=== PATIENT | male | born 1980 | race Two or more races ===

== ENCOUNTER → 2020-07-19 | Outpatient (CLI) | payer BC ==
--- NOTE | 2020-07-19 12:57 | US ---
EXAMINATION TYPE: US abdomen complete DATE OF EXAM: 07/19/2020 COMPARISON: NONE CLINICAL HISTORY: R74.01 elevations of levels of liver transaminase. EXAM MEASUREMENTS: Liver Length: 15.1 cm Gallbladder Wall: 0.1 cm CBD: 0.3 cm Spleen: 9.2 cm Right Kidney: 11.6 x 4.7 x 5.3 cm Left Kidney: 10.7 x 6.7 x 5.3 cm Pancreas: Obscured by bowel gas. Liver: Coarse, heterogenous hyperechoic echotexture. Hypoechoic area adjacent to gallbladder fossa m easuring 1.3 cm. Gallbladder: 2 nonshadowing echogenic foci visualized, measuring up to 7 mm. Pump Press Operator reports negative sonographic Andrade sign. CBD: Normal. Spleen: Normal. Right Kidney: No hydronephrosis or masses seen Left Kidney: No hydronephrosis or masses seen Upper IVC: Normal. Abd Aorta: Obscured by bowel gas, visualized portions nonaneurysmal IMPRESSION: 1. Markedly fatty liver. 2. Small hypoechoic area within the liver near the gallbladder fossa may represent focal fatty sparin g. 3. Nonshadowing echogenic foci of the gallbladder wall may represent gallbladder polyps versus adhere nt sludge ball, measuring up to 7 mm.
== END | disposition home or self-care (01) ==
LOC: RADUSWWP 08:01
PROVIDERS: ATTEND Family Medicine
DX: K76.0 Fatty (change of) liver, not elsewhere classified (principal); R93.5 Abnormal findings on diagnostic imaging of other abdominal regions, including retroperitoneum
CPT/HCPCS: 76700

== ENCOUNTER 2020-08-28 06:45 | Day surgery (SDC) | payer BC ==
[2020-08-23 16:07] VITALS: BMI 30.9
[2020-08-28 07:08] VITALS: TEMP 96.9
[2020-08-28 07:20] LABS: Glucose,Whole Blood 133 mg/dL (75-99)
[2020-08-28] MEDS ORDERED: LACTATED RINGERS 1,000 ML IV ONE (07:21)
[2020-08-28] MEDS ORDERED: LIDOCAINE 1% (10MG/ML) FOR IV START INTRADERMA ONE (07:21)
[2020-08-28] MEDS ORDERED: PROPOFOL 10 MG/ML 20 ML VIAL IV ONE (07:39)
[2020-08-28] MEDS ORDERED: LIDOCAINE 1% INJ 10MG/ML (20 ML MDV) ONE (07:39)
--- NOTE | 2020-08-28 08:06 | P.PCN ---
Date of Procedure: 08/28/20 Description of Procedure: BRIEF HISTORY: Patient is a 40-year-old male presented for outpatient colonoscopy for evaluation of symptoms of constipation. The patient reports 2 years of difficulty with bowel movements and constipation. He does use [id number] laxative therapy. PROCEDURE PERFORMED: Colonoscopy with polypectomy and biopsy. PREOPERATIVE DIAGNOSIS: Constipation and change in bowel habits, no prior colonoscopy. ESTIMATED BLOOD LOSS: Minimal. IV sedation per Anesthesia. PROCEDURE: After informed consent was obtained, the patient, was brought into the endoscopy unit. IV sedation was administered by Anesthesia under continuous monitoring. Digital rectal examination was normal, external hemorrhoids. Initially the Olympus CF-190 flexible video colonoscope was then inserted in the rectum, gradually advanced into the cecum without any difficulty. Careful examination was performed as the scope was gradually being withdrawn. Ileocecal valve and the appendiceal orifice were visualized and appeared normal. Prep was excellent. Mucosa of the cecum, ascending colon, transverse colon, descending colon, sigmoid colon, and rectum appeared normal. 2 diminutive polyps measuring 1-2 mm in size removed from the descending colon and rectum with cold forcep polypectomy. Random biopsies taken of the normal-appearing terminal ileum and right and left colon due to altered bowel function. Retroflexion was performed in the rectum and no lesions were seen, mild internal hemorrhoids. The patient tolerated the procedure well. IMPRESSION: 2 diminutive polyps removed with cold forcep polypectomy from the descending colon and rectum. Internal and external hemorrhoids. Otherwise normal-appearing colon from rectum to cecum and terminal ileum, with random biopsies taken of the terminal ileum, right colon and left colon due to altered bowel function. RECOMMENDATIONS: Findings of this examination were discussed with the patient and his family. Okay to resume diet. Okay to resume medications. Await pathology from biopsies and polypectomy. Recommend repeat colonoscopy in 7 years for colon polyps pending pathology from polypectomy.
[2020-08-28 08:25] VITALS: BP 127/88; PULSE 75; RESP 18
== END 2020-08-28 08:49 | disposition home or self-care (01) ==
LOC: ORWHC2ENDO 06:45
PROVIDERS: ATTEND Internal Medicine
DX: K63.5 Polyp of colon (principal); K62.1 Rectal polyp; K64.8 Other hemorrhoids; K64.4 Residual hemorrhoidal skin tags; E11.9 Type 2 diabetes mellitus without complications; K21.9 Gastro-esophageal reflux disease without esophagitis; Z79.899 Other long term (current) drug therapy; Z87.891 Personal history of nicotine dependence
CPT/HCPCS: 88305; 45380; J2001; J2704

== ENCOUNTER 2021-04-13 19:36 | Emergency (ER) | payer BC, OTHER ==
[2021-04-13 19:45] VITALS: RESP 18
[2021-04-13] MEDS ORDERED: MORPHINE SULFATE 2 MG/ML SYRINGE IVP STA (19:55)
[2021-04-13] MEDS ORDERED: SODIUM CHLORIDE 0.9% 1,000 ML IV STA (19:55)
--- NOTE | 2021-04-13 20:03 | ED ---
Abdominal Pain HPI - General Chief Complaint: Abdominal Pain Stated Complaint: Abd Pain Source: patient, RN notes reviewed, old records reviewed Mode of arrival: ambulatory - History of Present Illness Initial Comments: 41-year-old well-appearing male presents to the emergency room with complaints of 2 weeks of abdominal pain. Patient states that 2 weeks ago he was moving a refrigerator and he felt something pull in the right lower abdomen. It is progressively getting worse throughout the past 2 weeks now radiating to the left upper abdomen. He states the pain is worse when he is in bed. It does get better when he takes Tylenol but then comes back. Denies any nausea vomiting or diarrhea. No fevers. No chest pain or shortness of breath. He states he's had no abdominal surgeries in the past. He is a diabetic he states that he takes invokana and just started taking trulance. He does have constipation problems chronically. Patient is a nonsmoker. MD Complaint: abdominal pain -: week(s) (2) Location: RLQ Radiation: LUQ Severity scale (1-10): 8 Quality: sharp Consistency: constant Improves With: medication (Tylenol ) Worsens With: movement Context: other ([place] it 2 weeks ago when moving a refrigerator) Associated Symptoms: denies other symptoms Treatments Prior to Arrival: other (Tylenol) - Related Data Home Medications Medication Instructions Recorded Confirmed Canagliflozin [Invokana] 100 mg PO DAILY 08/23/20 08/28/20 Cetirizine HCl [Zyrtec] 10 mg PO DAILY 08/23/20 08/28/20 Plecanatide [Trulance] 3 mg PO DAILY 04/13/21 04/13/21 Previous Rx's Medication Instructions Recorded Cyclobenzaprine [Flexeril] 10 mg PO HS PRN 7 Days #7 tab 04/13/21 Allergies Allergy/AdvReac Type Severity Reaction Status Date / Time No Known Allergies Allergy Verified 08/28/20 07:00 Review of Systems ROS Statement: Those systems with pertinent positive or pertinent negative responses have been documented in the HPI. ROS Other: All systems not noted in ROS Statement are negative. Past Medical History Past Medical History: Diabetes Mellitus, GERD/Reflux Additional Past Medical History / Comment(s): constipation History of Any Multi-Drug Resistant Organisms: None Reported Past Surgical History: No Surgical Hx Reported Past Anesthesia/Blood Transfusion Reactions: No Reported Reaction Past Psychological History: No Psychological Hx Reported Smoking Status: Former smoker Past Alcohol Use History: None Reported Past Drug Use History: None Reported - Past Family History Mother Family Medical History: No Reported History General Exam General appearance: alert, in no apparent distress Head exam: Present: atraumatic, normocephalic, normal inspection Eye exam: Present: normal appearance, PERRL, EOMI. Absent: scleral icterus, conjunctival injection, periorbital swelling Pupils: Present: normal accommodation ENT exam: Present: normal exam, normal oropharynx, mucous membranes moist Neck exam: Present: normal inspection. Absent: tenderness, meningismus, lymphadenopathy Respiratory exam: Present: normal lung sounds bilaterally. Absent: respiratory distress, wheezes, rales, rhonchi, stridor, chest wall tenderness, accessory muscle use, decreased breath sounds, prolonged expiratory Cardiovascular Exam: Present: regular rate, normal rhythm, normal heart sounds. Absent: systolic murmur, diastolic murmur, rubs, gallop, clicks GI/Abdominal exam: Present: soft, distended, tenderness (Diffuse). Absent: guarding, rigid, mass, pulsatile mass, hernia Extremities exam: Present: normal inspection, full ROM, normal capillary refill. Absent: tenderness, pedal edema, joint swelling, calf tenderness Back exam: Present: normal inspection, full ROM. Absent: tenderness, CVA tenderness (R), CVA tenderness (L), muscle spasm, paraspinal tenderness, vertebral tenderness Neurological exam: Present: alert, oriented X3, CN II-XII intact Psychiatric exam: Present: normal affect, normal mood Skin exam: Present: warm, dry, intact, normal color. Absent: rash, cyanosis, diaphoretic, erythema, petechiae, pallor, mottled Course Vital Signs 04/13/21 04/13/21 19:43 22:12 Temperature 98.0 F 98.1 F Pulse Rate 88 60 Respiratory 18 18 Rate Blood Pressure 154/89 119/83 O2 Sat by Pulse 97 95 Oximetry Medical Decision Making - Medical Decision Making CT of the abdomen and pelvis with contrast shows normal liver, spleen, stomach, pancreas, and gallbladder. There is no hydrohephrosis, no retroperitoneal adenopathy. No inguinal hernia or free fluid in pelvis. The appendix is normal. There is no bowel obstruction. WBC in 7.9, glucose 112 with 4+ glucose in urine. Pt was given 1 L normal saline bolus. Patient now states this could be a muscle spasm. His is at bedside states she is a physician tax accounting assistant requesting Flexeril for muscle spasms which will be prescribed. He will follow up with his primary care doctor next week, return if worsening pain or fevers. Case discussed with Dr. Saldana. - Lab Data Result diagrams: 04/13/21 20:24 04/13/21 20:24 Lab Results 04/13/21 04/13/21 04/13/21 Range/Units 20:24 20:24 20:24 WBC 7.9 (3.8-10.6) k/uL RBC 5.12 (4.30-5.90) m/uL Hgb 15.1 (13.0-17.5) gm/dL Hct 46.3 (39.0-53.0) % MCV 90.4 (80.0-100.0) fL MCH 29.5 (25.0-35.0) pg MCHC 32.7 (31.0-37.0) g/dL RDW 13.4 (11.5-15.5) % Plt Count 237 (150-450) k/uL MPV 8.8 Neutrophils % 52 % Lymphocytes % 34 % Monocytes % 7 % Eosinophils % 3 % Basophils % 1 % Neutrophils # 4.1 (1.3-7.7) k/uL Lymphocytes # 2.7 (1.0-4.8) k/uL Monocytes # 0.6 (0-1.0) k/uL Eosinophils # 0.2 (0-0.7) k/uL Basophils # 0.0 (0-0.2) k/uL PT 9.9 (9.0-12.0) sec INR 0.9 (<1.2) APTT 24.2 (22.0-30.0) sec Sodium (137-145) mmol/L Potassium (3.5-5.1) mmol/L Chloride (98-107) mmol/L Carbon Dioxide (22-30) mmol/L Anion Gap mmol/L BUN (9-20) mg/dL Creatinine (0.66-1.25) mg/dL Est GFR (CKD-EPI)AfAm (>60 ml/min/1.73 sqM) Est GFR (CKD-EPI)NonAf (>60 ml/min/1.73 sqM) Glucose (74-99) mg/dL Plasma Lactic Acid Alan (0.7-2.0) mmol/L Calcium (8.4-10.2) mg/dL Total Bilirubin (0.2-1.3) mg/dL AST (17-59) U/L ALT (4-49) U/L Alkaline Phosphatase (38-126) U/L Total Protein (6.3-8.2) g/dL Albumin (3.5-5.0) g/dL Amylase (30-110) U/L Lipase (23-300) U/L Urine Color Light Yellow Urine Appearance Clear (Clear) Urine pH 6.0 (5.0-8.0) Ur Specific [place] 1.025 (1.001-1.035) Urine Protein Negative (Negative) Urine Glucose (UA) 4+ H (Negative) Urine Ketones Negative (Negative) Urine Blood Negative (Negative) Urine Nitrite Negative (Negative) Urine Bilirubin Negative (Negative) Urine Urobilinogen <2.0 (<2.0) mg/dL Ur Leukocyte Esterase Negative (Negative) 04/13/21 04/13/21 Range/Units 20:24 20:24 WBC (3.8-10.6) k/uL RBC (4.30-5.90) m/uL Hgb (13.0-17.5) gm/dL Hct (39.0-53.0) % MCV (80.0-100.0) fL MCH (25.0-35.0) pg MCHC (31.0-37.0) g/dL RDW (11.5-15.5) % Plt Count (150-450) k/uL MPV Neutrophils % % Lymphocytes % % Monocytes % % Eosinophils % % Basophils % % Neutrophils # (1.3-7.7) k/uL Lymphocytes # (1.0-4.8) k/uL Monocytes # (0-1.0) k/uL Eosinophils # (0-0.7) k/uL Basophils # (0-0.2) k/uL PT (9.0-12.0) sec INR (<1.2) APTT (22.0-30.0) sec Sodium 139 (137-145) mmol/L Potassium 3.9 (3.5-5.1) mmol/L Chloride 105 (98-107) mmol/L Carbon Dioxide 25 (22-30) mmol/L Anion Gap 9 mmol/L BUN 19 (9-20) mg/dL Creatinine 1.10 (0.66-1.25) mg/dL Est GFR (CKD-EPI)AfAm >90 (>60 ml/min/1.73 sqM) Est GFR (CKD-EPI)NonAf 84 (>60 ml/min/1.73 sqM) Glucose 112 H (74-99) mg/dL Plasma Lactic Acid Alan 1.1 (0.7-2.0) mmol/L Calcium 9.4 (8.4-10.2) mg/dL Total Bilirubin 0.3 (0.2-1.3) mg/dL AST 65 H (17-59) U/L ALT 122 H (4-49) U/L Alkaline Phosphatase 116 (38-126) U/L Total Protein 7.5 (6.3-8.2) g/dL Albumin 4.4 (3.5-5.0) g/dL Amylase 63 (30-110) U/L Lipase 114 (23-300) U/L Urine Color Urine Appearance (Clear) Urine pH (5.0-8.0) Ur Specific [place] (1.001-1.035) Urine Protein (Negative) Urine Glucose (UA) (Negative) Urine Ketones (Negative) Urine Blood (Negative) Urine Nitrite (Negative) Urine Bilirubin (Negative) Urine Urobilinogen (<2.0) mg/dL Ur Leukocyte Esterase (Negative) Disposition Clinical Impression: Abdominal pain Disposition: HOME SELF-CARE Condition: Good Instructions (If sedation given, give patient instructions): Abdominal Pain (ED) Additional Instructions: Take flexeril at bedtime and do not drive or drink alcohol while taking medication. Return to the emergency room with worsening pain or fevers. Follow-up with the primary care doctor in 1 week. Prescriptions: Cyclobenzaprine [Flexeril] 10 mg PO HS PRN 7 Days #7 tab PRN Reason: Muscle Spasm Is patient prescribed a controlled substance at d/c from ED?: No Referrals: Omer Forman MD [Primary Care Provider] - 1-2 days Time of Disposition: 22:01
[2021-04-13 20:32] LABS: Basophils % (A) 1 %; Eosinophils # (A) 0.2 k/uL (0-0.7); Eosinophils % (A) 3 %; HCT 46.3 % (39.0-53.0); HGB 15.1 gm/dL (13.0-17.5); Lymphocytes # (A) 2.7 k/uL (1.0-4.8); Lymphocytes % (A) 34 %; MCH 29.5 pg (25.0-35.0); MCHC 32.7 g/dL (31.0-37.0); MCV 90.4 fL (80.0-100.0); Mean Platelet Volume 8.8; Monocytes # (A) 0.6 k/uL (0-1.0); Monocytes % (A) 7 %; Neutrophils # (A) 4.1 k/uL (1.3-7.7); Neutrophils % (A) 52 %; Platelet Count 237 k/uL (150-450); RBC 5.12 m/uL (4.30-5.90); RDW 13.4 % (11.5-15.5); WBC 7.9 k/uL (3.8-10.6)
[2021-04-13 20:42] LABS: ALT 122 U/L (4-49); AST 65 U/L (17-59); African American GFR (CKD) >90 (>60 ml/min/1.73 sqM); Albumin 4.4 g/dL (3.5-5.0); Alkaline Phosphatase 116 U/L (38-126); Amylase 63 U/L (30-110); Anion Gap 9 mmol/L; Blood Urea Nitrogen 19 mg/dL (9-20); Calcium 9.4 mg/dL (8.4-10.2); Carbon Dioxide 25 mmol/L (22-30); Chloride 105 mmol/L (98-107); Glucose 112 mg/dL (74-99); Lipase 114 U/L (23-300); Non-African American GFR(CKD) 84 (>60 ml/min/1.73 sqM); Potassium 3.9 mmol/L (3.5-5.1); Sodium 139 mmol/L (137-145); Total Bilirubin 0.3 mg/dL (0.2-1.3); Total Protein 7.5 g/dL (6.3-8.2)
[2021-04-13 20:44] LABS: Appearance,Urine Clear (Clear); Bilirubin,Urine Negative (Negative); Blood,Urine Negative (Negative); Color,Urine Light Yellow; Glucose,Urine (UA) 4+ (Negative); INR 0.9 (<1.2); Ketones,Urine Negative (Negative); Leukocyte Esterase,Urine Negative (Negative); Nitrite,Urine Negative (Negative); Partial Thromboplastin Time 24.2 sec (22.0-30.0); Protein,Urine Negative (Negative); Prothrombin Time 9.9 sec (9.0-12.0); Specific Gravity,Urine 1.025 (1.001-1.035); Urobilinogen,Urine <2.0 mg/dL (<2.0)
--- NOTE | 2021-04-13 21:39 | CT ---
EXAMINATION TYPE: CT abdomen pelvis w con DATE OF EXAM: 04/13/2021 COMPARISON: None HISTORY: Generalized pain with constipation. CT DLP: 1132.1 mGycm Automated exposure control for dose reduction was used. CONTRAST: Performed with IV Contrast, patient injected with 100 mL of Isovue 300. Lung bases are clear. There is no pleural effusion. Heart size is normal. There is no pericardial eff usion. The liver spleen stomach pancreas gallbladder appear normal. The bile ducts are not dilated. There is no adrenal mass. The kidneys show satisfactory contrast opacification. There is no hydroneph rosis. Ureters are not dilated. Delayed images show normal renal excretion. There is no retroperitone al adenopathy. The bladder distends smoothly. There is no inguinal hernia. There is no free fluid in the pelvis. The re is no evidence of a pelvic mass. The appendix is medial and appears normal. There is no mesenteric edema. There is no ascites or free air. There is no bowel obstruction. The lumbar vertebra have normal alignment. There is narrowing at L5-S1 disc with vacuum disc and spur formation. There is no compression fracture. The bony pelvis is intact. Hip joints are intact. IMPRESSION: Negative CT scan abdomen and pelvis. Normal appendix.
[2021-04-13 22:16] VITALS: BP 119/83; PULSE 60; TEMP 98.1
== END 2021-04-13 22:15 | disposition home or self-care (01) ==
LOC: EC 19:36
DX: R10.31 Right lower quadrant pain (principal); R10.12 Left upper quadrant pain; E11.9 Type 2 diabetes mellitus without complications; Z87.891 Personal history of nicotine dependence; Z79.84 Long term (current) use of oral hypoglycemic drugs
CPT/HCPCS: 36415; 80053; 82150; 83605; 83690; 85025; 85610; 85730; 81003; 74177; 99284; Q9967

== ENCOUNTER 2023-12-01 13:35 | Emergency (ER) | payer OTHER ==
[2023-12-01 14:09] VITALS: TEMP 98.2
--- NOTE | 2023-12-01 14:48 | ED ---
Neck Injury/Pain HPI - General Chief Complaint: Neck Pain/Injury Stated Complaint: neck pain Time Seen by Provider: 12/01/23 14:02 Source: patient, RN notes reviewed Mode of arrival: ambulatory Limitations: no limitations - History of Present Illness Initial Comments: This is a 43-year-old male who presents to the emergency department for neck pain. States that it has been present for the last 2 months. Denies any injuries. Today the pain has gotten worse and he feels like he is unable to move his neck. He is already taking both Flexeril and Mobic. He was also given a Medrol Dosepak for symptoms of influenza. He has previously had x-rays of the neck revealing no acute findings. He also saw orthopedics a couple months ago and was told that there was nothing else that they could do for him. MD Complaint: neck pain - Related Data Home Medications Medication Instructions Recorded Confirmed Canagliflozin [Invokana] 100 mg PO DAILY 08/23/20 08/28/20 Cetirizine HCl [Zyrtec] 10 mg PO DAILY 08/23/20 08/28/20 Plecanatide [Trulance] 3 mg PO DAILY 04/13/21 04/13/21 Previous Rx's Medication Instructions Recorded Cyclobenzaprine [Flexeril] 10 mg PO HS PRN 7 Days #7 tab 04/13/21 predniSONE 50 mg PO DAILY 5 Days #5 tab 12/01/23 tiZANidine [Zanaflex] 2 mg PO Q6HR PRN #30 tab 12/01/23 Allergies Allergy/AdvReac Type Severity Reaction Status Date / Time grass pollen-[place], Allergy Rash/Hives Verified 12/01/23 13:59 standard Review of Systems ROS Statement: Those systems with pertinent positive or pertinent negative responses have been documented in the HPI. ROS Other: All systems not noted in ROS Statement are negative. Past Medical History Past Medical History: Diabetes Mellitus, GERD/Reflux Additional Past Medical History / Comment(s): constipation History of Any Multi-Drug Resistant Organisms: None Reported Past Surgical History: No Surgical Hx Reported Past Anesthesia/Blood Transfusion Reactions: No Reported Reaction Past Psychological History: No Psychological Hx Reported Smoking Status: Former smoker Past Alcohol Use History: None Reported Past Drug Use History: None Reported - Past Family History Mother Family Medical History: No Reported History General Exam Limitations: no limitations General appearance: alert, in no apparent distress Head exam: Present: atraumatic, normocephalic, normal inspection Neck exam: Present: other (Tenderness to palpation over the posterior cervical spine. Range of motion limited by pain.) Respiratory exam: Present: normal lung sounds bilaterally. Absent: respiratory distress, wheezes, rales, rhonchi, stridor Cardiovascular Exam: Present: regular rate, normal rhythm, normal heart sounds. Absent: systolic murmur, diastolic murmur, rubs, gallop, clicks Neurological exam: Present: alert, oriented X3, CN II-XII intact Psychiatric exam: Present: normal affect, normal mood Skin exam: Present: warm, dry, intact, normal color. Absent: rash Course Vital Signs 12/01/23 12/01/23 13:57 17:35 Temperature 98.2 F 98.2 F Pulse Rate 100 98 Respiratory 20 18 Rate Blood Pressure 153/100 150/87 O2 Sat by Pulse 95 99 Oximetry Medical Decision Making - Medical Decision Making This is a 43-year-old male who presents to the emergency department for neck pain. Was pt. sent in by a medical professional or institution? @ -No Did you speak to anyone other than the patient for history? @ -No Did you review nursing and triage notes? @ -Yes, and I agree, it is accurate with regards to the patient's symptoms. Were old charts reviewed? @ -No Differential Diagnosis? @ -Differential Neck Pain: Fracture, dislocation, contusion, strain, DDD, disc herniation, this is not meant to be an all-inclusive list. EKG interpreted by me (3pts min.)? @ -Not obtained X-rays interpreted by me (1pt min.)? @ -X-ray of the cervical spine obtained. My interpretation identifies no acute fractures. CT interpreted by me (1pt min.)? @ -CT scan of the cervical spine obtained. My interpretation identifies degenerative changes without any acute fractures. U/S interpreted by me (1pt. min.)? @ -Not obtained What testing was considered but not performed? (CT, X-rays, U/S, labs)? Why? @ -None What meds were considered but not given? Why? @ -None Did you discuss the management of the patient with other professionals? @ -No Did you reconcile home meds? @ -No Was smoking cessation discussed for >3mins.? @ -No Was critical care preformed (if so, how long)? @ -No Were there social determinants of health that impacted care today? How? (Homelessness, low income, unemployed, alcoholism, drug addiction, transportation, low edu. Level, literacy, decrease access to med. care, custodial, rehab)? @ -No Was there de-escalation of care discussed even if they declined? (Discuss DNR or withdrawal of care, Hospice)? @ -No What co-morbidities impacted this encounter? (DM, HTN, Smoking, COPD, CAD, Cancer, CVA, Hep., AIDS, mental health diagnosis, sleep apnea, morbid obesity)? @ -None Was patient admitted / discharged? @ -Discharged. X-ray of the cervical spine obtained demonstrating degenerative changes and neuroforaminal stenosis. Patient was not very responsive to several pain medications and still had difficulty with movement of the neck. We subsequently obtained a CT scan of the cervical spine to evaluate for any other acute process contributing to the symptoms. This revealed degenerative changes without any acute process. Given the positional nature of his symptoms and reproducibility, it is suggestive of a muscular process. Will put the patient on a 5-day course of prednisone as well and as an alternative muscle relaxant to see if that offers any additional benefit. Prescription for prednisone and Zanaflex provided with dose instructions reviewed. Advised he use either the Zanaflex or the Flexeril, and avoid taking them together. Advised that he can reach back out to orthopedics to see if they would be willing to see him for a follow-up appointment. He will otherwise follow-up with his primary care provider. Undiagnosed new problem with uncertain prognosis? @ -None Drug Therapy requiring intensive monitoring for toxicity (Heparin, Nitro, Insulin, Cardizem)? @ -None Were any procedures done? @ -None Diagnosis/symptom? @ -Cervical strain Acute, or Chronic, or Acute on Chronic? @ -Acute Uncomplicated (without systemic symptoms) or Complicated (systemic symptoms)? @ -Uncomplicated Side effects of treatment? @ -None Exacerbation, Progression, or Severe Exacerbation] @ -Not applicable Poses a threat to life or bodily function? @ -No Return precautions reviewed in depth, the patient is instructed to return to the emergency department with any new, worsening, or concerning symptoms. Patient verbalized understanding. This case was discussed in detail with the attending ED physician, Dr. Anderson. Presentation, findings, and treatment plan discussed in detail as well. - Radiology Data Radiology results: report reviewed, image reviewed Disposition Clinical Impression: Cervical strain, Cervical radiculopathy Disposition: HOME SELF-CARE Instructions (If sedation given, give patient instructions): Cervical Strain (ED) Additional Instructions: Return to the emergency department with any new, worsening, or concerning symptoms. Take the prednisone daily for 5 days. You can try taking the Zanaflex every 6-8 hours. If you take this, do not take the Flexeril, take one of the other. You can increase the Zanaflex to 2 tablets at a time if one is not effective. You can also try an over the counter magnesium supplement, which can work as a muscle relaxer. Follow up with your primary care provider in 1-2 days. Also consider following up with orthopedics. Prescriptions: predniSONE 50 mg PO DAILY 5 Days #5 tab tiZANidine [Zanaflex] 2 mg PO Q6HR PRN #30 tab PRN Reason: Pain Is patient prescribed a controlled substance at d/c from ED?: No Referrals: Omer Forman MD [Primary Care Provider] - 1-2 days
[2023-12-01] MEDS: KETOROLAC 15 MG/ML 1 ML VIAL IVP STA (15:01)
[2023-12-01] MEDS: MORPHINE SULFATE 4 MG/ML SYRINGE IVP STA (15:01)
[2023-12-01] MEDS: ORPHENADRINE 30 MG/ML 2 ML VIAL IVP STA (15:01)
[2023-12-01] MEDS: DEXAMETHASONE SOD PHOSPHATE 10 MG/ML 1 ML VIAL IVP STA (15:02)
--- NOTE | 2023-12-01 15:38 | XR ---
EXAMINATION TYPE: XR cervical spine comp DATE OF EXAM: 12/01/2023 COMPARISON: None HISTORY: 43-year-old male with neck pain TECHNIQUE: 5 views FINDINGS: No predental space widening or prevertebral soft tissue swelling. Mild disc/endplate degenerative macarena nge C5-C7 levels. Straightening of the normal cervical lordosis. Uncovertebral joint arthropathy mid to lower cervical spine. Changes result in moderate bony neuroforaminal narrowing at C6-C7 on both si alverto. Normal odontoid view. IMPRESSION: Mild disc/endplate degenerative change C5-C7 levels. Additional uncovertebral joint arthropathy mid t o lower cervical spine. Changes result in moderate bony neuroforaminal narrowing on both sides at C6/ C7.
--- NOTE | 2023-12-01 16:22 | CT ---
EXAMINATION TYPE: CT cervical spine wo con DATE OF EXAM: 12/01/2023 COMPARISON: 12/01/2023. HISTORY: Intractable neck pain. CT DLP: 509.7 mGycm Automated exposure control for dose reduction was used. TECHNIQUE: CT scan of the cervical spine is obtained without contrast, axial images are obtained, sa gittal and coronal reformatted images are also reviewed. FINDINGS: Cervical spine is visualized in its entirety from C1 through upper thoracic levels, demonst rates satisfactory alignment without evidence of acute fracture or dislocation. Prevertebral soft ti ssue appears within normal limits. The C1-C2 articulation is within normal limits on the coronal sandra ges. There is otherwise straightening of the normal cervical lordosis. Moderate degenerative disc sp benjamin narrowing is seen at C5-6 and C6-7. IMPRESSION: Moderate degenerative changes with no acute osseous abnormalities.
[2023-12-01 18:01] VITALS: BP 150/87; PULSE 98; RESP 18
== END 2023-12-01 17:37 | disposition home or self-care (01) ==
LOC: EC 13:35
DX: S16.1XXA Strain of muscle, fascia and tendon at neck level, initial encounter (principal); Z88.8 Allergy status to other drugs, medicaments and biological substances; Z87.891 Personal history of nicotine dependence; X58.XXXA Exposure to other specified factors, initial encounter
CPT/HCPCS: 72050; 72125; 99284; 96374; 96375 ×4; J2270; J1100; J2360; J3360; J1885

== ENCOUNTER → 2024-11-29 | Outpatient (CLI) | payer BC ==
[2024-11-29 14:57] LABS: Basophils # (A) 0.04 X 10*3/uL (0.00-0.10); Basophils % (A) 0.4 %; Eosinophils # (A) 0.25 X 10*3/uL (0.04-0.35); Eosinophils % (A) 2.6 %; HCT 44.1 % (39.6-50.0); HGB 14.6 g/dL (13.0-17.0); Lymphocytes # (A) 1.61 X 10*3/uL (0.90-5.00); MCH 29.1 pg (27.0-32.0); MCHC 33.1 g/dL (32.0-37.0); MCV 87.8 FL (80.0-97.0); Mean Platelet Volume 11.9 FL (9.5-12.2); Monocytes # (A) 0.81 X 10*3/uL (0.20-1.00); Monocytes % (A) 8.5 %; NRBC Per 100 WBC 0 X 10*3/uL (0.00-0.01); Neutrophils # (A) 6.73 X 10*3/uL (1.80-7.70); Platelet Count 223 X 10*3/uL (140-440); RBC 5.02 X 10*6/uL (4.40-5.60); RDW 13.7 % (11.5-14.5); WBC 9.49 X 10*3/uL (4.50-10.00)
[2024-11-29 16:01] LABS: Iron 110 UG/DL (65-175); Total Iron Binding Capacity 378 UG/DL (228-460)
[2024-11-29 16:05] LABS: ALT 149 U/L (10-49); AST 104 U/L (14-35); Albumin 4.6 g/dL (3.8-4.9); Albumin/Globulin Ratio 1.59 Ratio (1.60-3.17); Alkaline Phosphatase 134 U/L (41-126); Blood Urea Nitrogen 12.8 mg/dL (9.0-27.0); Calcium 9.6 mg/dL (8.7-10.3); Carbon Dioxide 23.6 mmol/L (21.6-31.8); Chloride 101 mmol/L (96-109); Chol/HDL Ratio 4.42 Ratio; Globulin 2.9 g/dL (1.6-3.3); Glucose 168 mg/dL (70-110); LDL Cholesterol,Calculated 96.2 mg/dL (0.0-131.0); Potassium 4.4 mmol/L (3.5-5.5); Sodium 138 mmol/L (135-145); Total Bilirubin 0.4 mg/dL (0.3-1.2); Total Protein 7.5 g/dL (6.2-8.2)
== END | disposition home or self-care (01) ==
LOC: LABWHC1 08:21
PROVIDERS: ATTEND Family Medicine
DX: Z00.00 Encounter for general adult medical examination without abnormal findings (principal); D50.9 Iron deficiency anemia, unspecified; E11.9 Type 2 diabetes mellitus without complications
CPT/HCPCS: 36415; 80053; 80061; 82043; 82570; 82607; 82728; 82746; 83540; 83550; 84443; 85025

== ENCOUNTER → 2024-12-06 | Outpatient (CLI) | payer BC ==
--- NOTE | 2024-12-06 08:06 | US ---
EXAMINATION TYPE: US liver DATE OF EXAM: 12/06/2024 COMPARISON: CLINICAL INDICATION: Male, 44 years old with history of R74.01 ELEVATION OF LEVELS OF LIVER TRANSAMIN ASE L; Abnormal labs, history of fatty liver TECHNIQUE: Grayscale and color Doppler imaging of the right upper quadrant was performed. FINDINGS: EXAM MEASUREMENTS: Liver Length: 16.4 cm Gallbladder Wall: 0.2 cm CBD: 0.4 cm Right Kidney: 11.5 x 4.8 x 5.1 cm Pancreas: Body and tail obscured by overlying bowel gas Liver: Increased attenuation, decreased visualization of vessels suggestive of fatty infiltrate. Ec hogenic. Heterogenous and coarse. Gallbladder: Echogenic lesions seen adjacent to wall, largest = 0.3 cm. Evidence for sonographic Andrade's sign: neg CBD: wnl Right Kidney: No hydronephrosis or masses seen IMPRESSION: 1. Adherent gallstones and/or polyps. 2. Probable hepatic steatosis. [facility], , 12/06/2024 8:03 AM
== END | disposition home or self-care (01) ==
LOC: RADUSWWP 06:41
PROVIDERS: ATTEND Family Medicine
DX: R74.01 Elevation of levels of liver transaminase levels (principal)
CPT/HCPCS: 76705

== ENCOUNTER 2024-12-21 15:43 | Emergency (ER) | payer BC ==
[2024-12-21 15:46] VITALS: RESP 18; TEMP 98.7
--- NOTE | 2024-12-21 16:25 | ED ---
Abdominal Pain HPI - General Chief Complaint: Abdominal Pain Stated Complaint: adbominal pain, headache, nausea Time Seen by Provider: 12/21/24 16:24 Source: patient, RN notes reviewed Mode of arrival: ambulatory Limitations: no limitations - History of Present Illness Initial Comments: 44-year-old male with a past medical history significant of diabetes mellitus and GERD presenting to the ER for evaluation of abdominal pain. Patient states pain has been ongoing for a while and is a crampy sharp pain. He does states it comes and goes. He has tried stretching at home without relief of symptoms. Patient states he has been following up with PCP, Dr. Forman, as he is found to have transaminitis. Patient had outpatient ultrasound completed on 12-06-2024 showing adherent gallstones and/or polyps. No common bile duct dilation. Patient admits to nausea but denies any vomiting. Patient reports he feels bloated and has been taking Gas-X for symptom control. He also admits to intermittent lightheadedness but contributes this to pain. He currently rates his pain an 8 out of 10. He denies any vomiting, constipation/diarrhea, fevers, chills, chest pain or shortness of breath. He does report a pressure sensation with urination but denies any hematuria or history of kidney stones. No other complaints at this time. - Related Data Home Medications Medication Instructions Recorded Confirmed Canagliflozin [Invokana] 100 mg PO DAILY 08/23/20 08/28/20 Cetirizine HCl [Zyrtec] 10 mg PO DAILY 08/23/20 08/28/20 Plecanatide [Trulance] 3 mg PO DAILY 04/13/21 04/13/21 Previous Rx's Medication Instructions Recorded Cyclobenzaprine [Flexeril] 10 mg PO HS PRN 7 Days #7 tab 04/13/21 predniSONE 50 mg PO DAILY 5 Days #5 tab 12/01/23 tiZANidine [Zanaflex] 2 mg PO Q6HR PRN #30 tab 12/01/23 Ketorolac [Toradol] 10 mg PO Q8HR #15 tab 12/21/24 Ondansetron Odt [Zofran Odt] 4 mg PO Q8HR PRN #10 tab 12/21/24 Allergies Allergy/AdvReac Type Severity Reaction Status Date / Time grass pollen-[place], Allergy Rash/Hives Verified 12/21/24 15:46 standard Review of Systems ROS Statement: Those systems with pertinent positive or pertinent negative responses have been documented in the HPI. ROS Other: All systems not noted in ROS Statement are negative. Past Medical History Past Medical History: Diabetes Mellitus, GERD/Reflux Additional Past Medical History / Comment(s): constipation History of Any Multi-Drug Resistant Organisms: None Reported Past Surgical History: No Surgical Hx Reported Past Anesthesia/Blood Transfusion Reactions: No Reported Reaction Past Psychological History: No Psychological Hx Reported Smoking Status: Former smoker Past Alcohol Use History: None Reported Past Drug Use History: None Reported - Past Family History Mother Family Medical History: No Reported History General Exam Limitations: no limitations General appearance: alert, in no apparent distress Respiratory exam: Present: normal lung sounds bilaterally. Absent: respiratory distress, wheezes, rales, rhonchi, stridor Cardiovascular Exam: Present: regular rate, normal rhythm, normal heart sounds. Absent: systolic murmur, diastolic murmur, rubs, gallop, clicks GI/Abdominal exam: Present: soft, tenderness (RUQ/LLQ), normal bowel sounds Neurological exam: Present: alert, oriented X3, CN II-XII intact Skin exam: Present: warm, dry, intact, normal color. Absent: rash Course Vital Signs 12/21/24 15:44 Temperature 98.7 F Pulse Rate 111 H Respiratory 18 Rate Blood Pressure 149/99 O2 Sat by Pulse 96 Oximetry Medical Decision Making - Medical Decision Making Was pt. sent in by a medical professional or institution (, PA, YEAST WASHER, urgent care, hospital, or long term...) When possible be specific @ -[No] Did you speak to anyone other than the patient for history (EMS, parent, family, police, friend...)? What history was obtained from this source @ -[No] Did you review nursing and triage notes (agree or disagree)? Why? @ -[I reviewed and agree with nursing and triage notes] Were old charts reviewed (outside hosp., previous admission, EMS record, old EKG, old radiological studies, urgent care reports/EKG's, long term records)? Report findings @ -[No old charts were reviewed] Differential Diagnosis (chest pain, altered mental status, abdominal pain women, abdominal pain men, vaginal bleeding, weakness, fever, dyspnea, syncope, headache, dizziness, GI bleed, back pain, seizure, CVA, palpatations, mental health, musculoskeletal)? @ -Differential Abdominal Pain Men:Appendicitis, cholecystitis, diverticulosis, ischemic bowel, pancreatitis, hepatitis, UTI, gastroenteritis, AAA, incarcerated hernia, bowel obstruction, constipation, inflammatory bowel, hepatitis, peptic ulcer disease, splenic infarction, perforated viscus, testicular torsion, this is not meant to be an all-inclusive list EKG interpreted by me (3pts min.). @ -[As above] X-rays interpreted by me (1pt min.). @ -[None done] CT interpreted by me (1pt min.). @ -[None done] U/S interpreted by me (1pt. min.). @ -[None done] What testing was considered but not performed or refused? (CT, X-rays, U/S, labs)? Why? @ -[None] What meds were considered but not given or refused? Why? @ -[None] Did you discuss the management of the patient with other professionals (professionals i.e. , PA, YEAST WASHER, lab, RT, psych nurse, adoption social worker, fine grade bulldozer operator, teacher, parachute/combatant diver officer, pillowcase maker)? Give summary @ -[No] Was smoking cessation discussed for >3mins.? @ -[No] Was critical care preformed (if so, how long)? @ -[No] Were there social determinants of health that impacted care today? How? (Homelessness, low income, unemployed, alcoholism, drug addiction, transportation, low edu. Level, literacy, decrease access to med. care, residential, rehab)? @ -[No] Was there de-escalation of care discussed even if they declined (Discuss DNR or withdrawal of care, Hospice)? DNR status @ -[No] What co-morbidities impacted this encounter? (DM, HTN, Smoking, COPD, CAD, Cancer, CVA, ARF, Chemo, Hep., AIDS, mental health diagnosis, sleep apnea, morbid obesity)? @ -[None] Was patient admitted / discharged? Hospital course, mention meds given and route, prescriptions, significant lab abnormalities, going to OR and other pertinent info. @ -44-year-old male presented the ER for evaluation of abdominal pain. Upon rooming, history and physical exam completed as acceptable limits. Laboratory studies showing a transaminitis of AST 85, ALT 120, alk phos 159 total bilirubin 0.7. Lactic acid 2.1. Patient is hyperglycemic to 32 with 3+ glucose in the urine likely due to diabetes. CT abdomen pelvis ordered and pending at time of sign out to Isabel Malcolm PA-C at my shift completion. Undiagnosed new problem with uncertain prognosis? @ -[No] Drug Therapy requiring intensive monitoring for toxicity (Heparin, Nitro, Insulin, Cardizem)? @ -[No] Were any procedures done? @ -[No] Diagnosis/symptom? @ -[default] Acute, or Chronic, or Acute on Chronic? @ -[default] Uncomplicated (without systemic symptoms) or Complicated (systemic symptoms)? @ -[default] Side effects of treatment? @ -[No] Exacerbation, Progression, or Severe Exacerbation? @ -[No] Poses a threat to life or bodily function? How? (Chest pain, [place], [place], pneumonia, PE, COPD, DKA, ARF, appy, cholecystitis, CVA, Diverticulitis, Homicidal, Suicidal, threat to staff... and all critical care pts) @ -[No] - Lab Data Result diagrams: 12/21/24 16:43 12/21/24 16:43 Lab Results 12/21/24 12/21/24 12/21/24 Range/Units 16:43 16:43 16:43 WBC 10.3 (3.8-10.6) k/uL RBC 5.05 (4.30-5.90) m/uL Hgb 14.6 (13.0-17.5) gm/dL Hct 44.9 (39.0-53.0) % MCV 88.9 (80.0-100.0) fL MCH 29.0 (25.0-35.0) pg MCHC 32.6 (31.0-37.0) g/dL RDW 13.4 (11.5-15.5) % Plt Count 197 (150-450) k/uL MPV 9.6 Neutrophils % 72 % Lymphocytes % 18 % Monocytes % 6 % Eosinophils % 3 % Basophils % 0 % Neutrophils # 7.5 (1.3-7.7) k/uL Lymphocytes # 1.8 (1.0-4.8) k/uL Monocytes # 0.6 (0-1.0) k/uL Eosinophils # 0.3 (0-0.7) k/uL Basophils # 0.0 (0-0.2) k/uL Sodium 133 L (137-145) mmol/L Potassium 4.6 (3.5-5.1) mmol/L Chloride 98 (98-107) mmol/L Carbon Dioxide 23 (22-30) mmol/L Anion Gap 12 mmol/L BUN 15 (9-20) mg/dL Creatinine 0.61 L (0.66-1.25) mg/dL Est GFR (CKD-EPI)AfAm >90 (>60 ml/min/1.73 sqM) Est GFR (CKD-EPI)NonAf >90 (>60 ml/min/1.73 sqM) Glucose 232 H (74-99) mg/dL Plasma Lactic Acid Alan (0.7-2.0) mmol/L Calcium 9.8 (8.4-10.2) mg/dL Total Bilirubin 0.7 (0.2-1.3) mg/dL AST 85 H (17-59) U/L ALT 120 H (4-49) U/L Alkaline Phosphatase 159 H (38-126) U/L Total Protein 7.6 (6.3-8.2) g/dL Albumin 4.4 (3.5-5.0) g/dL Amylase 62 (30-110) U/L Lipase 133 (23-300) U/L Urine Color Colorless Urine Appearance Clear (Clear) Urine pH 6.0 (5.0-8.0) Ur Specific [place] 1.011 (1.001-1.035) Urine Protein Negative (Negative) Urine Glucose (UA) 3+ H (Negative) Urine Ketones Negative (Negative) Urine Blood Negative (Negative) Urine Nitrite Negative (Negative) Urine Bilirubin Negative (Negative) Urine Urobilinogen <2.0 (<2.0) mg/dL Ur Leukocyte Esterase Negative (Negative) 12/21/24 Range/Units 16:43 WBC (3.8-10.6) k/uL RBC (4.30-5.90) m/uL Hgb (13.0-17.5) gm/dL Hct (39.0-53.0) % MCV (80.0-100.0) fL MCH (25.0-35.0) pg MCHC (31.0-37.0) g/dL RDW (11.5-15.5) % Plt Count (150-450) k/uL MPV Neutrophils % % Lymphocytes % % Monocytes % % Eosinophils % % Basophils % % Neutrophils # (1.3-7.7) k/uL Lymphocytes # (1.0-4.8) k/uL Monocytes # (0-1.0) k/uL Eosinophils # (0-0.7) k/uL Basophils # (0-0.2) k/uL Sodium (137-145) mmol/L Potassium (3.5-5.1) mmol/L Chloride (98-107) mmol/L Carbon Dioxide (22-30) mmol/L Anion Gap mmol/L BUN (9-20) mg/dL Creatinine (0.66-1.25) mg/dL Est GFR (CKD-EPI)AfAm (>60 ml/min/1.73 sqM) Est GFR (CKD-EPI)NonAf (>60 ml/min/1.73 sqM) Glucose (74-99) mg/dL Plasma Lactic Acid Alan 2.1 H* (0.7-2.0) mmol/L Calcium (8.4-10.2) mg/dL Total Bilirubin (0.2-1.3) mg/dL AST (17-59) U/L ALT (4-49) U/L Alkaline Phosphatase (38-126) U/L Total Protein (6.3-8.2) g/dL Albumin (3.5-5.0) g/dL Amylase (30-110) U/L Lipase (23-300) U/L Urine Color Urine Appearance (Clear) Urine pH (5.0-8.0) Ur Specific [place] (1.001-1.035) Urine Protein (Negative) Urine Glucose (UA) (Negative) Urine Ketones (Negative) Urine Blood (Negative) Urine Nitrite (Negative) Urine Bilirubin (Negative) Urine Urobilinogen (<2.0) mg/dL Ur Leukocyte Esterase (Negative) - EKG Data -: EKG Interpreted by Me EKG Comments: EKG taken at 16: 23 showing a sinus rhythm. No ST segment elevations or depressions. Inverted T waves in lead III. Ventricular rate 95, HI 152, QRS duration 86, QT/QTc 322/375. Disposition Clinical Impression: Abdominal pain Disposition: HOME SELF-CARE Condition: Stable Instructions (If sedation given, give patient instructions): Biliary Colic (ED) Additional Instructions: Take Toradol as prescribed for pain. You normally take Zofran every 8 hours for nausea. Follow-up closely with PCP and general surgery for further evaluation of biliary colic. Return to the ER for any new or worsening concerns. Prescriptions: Ketorolac [Toradol] 10 mg PO Q8HR #15 tab Ondansetron Odt [Zofran Odt] 4 mg PO Q8HR PRN #10 tab PRN Reason: Nausea Is patient prescribed a controlled substance at d/c from ED?: No Referrals: Omer Forman MD [Primary Care Provider] - 1-2 days Yan Ortiz MD [Medical Doctor] - 1-2 days Jenifer Bernardo MD [STAFF PHYSICIAN] - 1-2 days Sebastian Rolon DO [Doctor of Osteopathic Medicine] - 1-2 days Time of Disposition: 19:29
[2024-12-21 16:58] LABS: Basophils % (A) 0 %; Eosinophils # (A) 0.3 k/uL (0-0.7); Eosinophils % (A) 3 %; HCT 44.9 % (39.0-53.0); HGB 14.6 gm/dL (13.0-17.5); Lymphocytes # (A) 1.8 k/uL (1.0-4.8); Lymphocytes % (A) 18 %; MCHC 32.6 g/dL (31.0-37.0); MCV 88.9 fL (80.0-100.0); Mean Platelet Volume 9.6; Monocytes # (A) 0.6 k/uL (0-1.0); Monocytes % (A) 6 %; Neutrophils # (A) 7.5 k/uL (1.3-7.7); Neutrophils % (A) 72 %; Platelet Count 197 k/uL (150-450); RBC 5.05 m/uL (4.30-5.90); RDW 13.4 % (11.5-15.5); WBC 10.3 k/uL (3.8-10.6)
[2024-12-21 17:01] LABS: Appearance,Urine Clear (Clear); Bilirubin,Urine Negative (Negative); Blood,Urine Negative (Negative); Color,Urine Colorless; Glucose,Urine (UA) 3+ (Negative); Ketones,Urine Negative (Negative); Leukocyte Esterase,Urine Negative (Negative); Nitrite,Urine Negative (Negative); Protein,Urine Negative (Negative); Specific Gravity,Urine 1.011 (1.001-1.035); Urobilinogen,Urine <2.0 mg/dL (<2.0)
[2024-12-21] MEDS: KETOROLAC 15 MG/ML 1 ML VIAL IVP STA (17:31)
[2024-12-21 17:33] LABS: ALT 120 U/L (4-49); African American GFR (CKD) >90 (>60 ml/min/1.73 sqM); Amylase 62 U/L (30-110); Anion Gap 12 mmol/L; Blood Urea Nitrogen 15 mg/dL (9-20); Calcium 9.8 mg/dL (8.4-10.2); Carbon Dioxide 23 mmol/L (22-30); Chloride 98 mmol/L (98-107); Glucose 232 mg/dL (74-99); Lipase 133 U/L (23-300); Non-African American GFR(CKD) >90 (>60 ml/min/1.73 sqM); Sodium 133 mmol/L (137-145); Total Bilirubin 0.7 mg/dL (0.2-1.3)
[2024-12-21] MEDS: SODIUM CHLORIDE 0.9% 1,000 ML IV ONE (17:34)
[2024-12-21 17:36] LABS: AST 85 U/L (17-59); Albumin 4.4 g/dL (3.5-5.0); Alkaline Phosphatase 159 U/L (38-126); Potassium 4.6 mmol/L (3.5-5.1); Total Protein 7.6 g/dL (6.3-8.2)
[2024-12-21] MEDS: ONDANSETRON 4 MG/2 ML VIAL IVP STA (18:11)
--- NOTE | 2024-12-21 19:13 | CT ---
EXAMINATION TYPE: CT abdomen pelvis w con DATE OF EXAM: 12/21/2024 COMPARISON: CT April 13, 2021. Ultrasound liver December 06, 2024 CLINICAL INDICATION: Male, 44 years old with history of RUQ abd pain, RUQ abd pain. RECENT US OF LIVE R, TECHNIQUE: CT scan of the abdomen and pelvis is performed with IV Contrast, patient injected with 100ml mL of Is ovue 300., (none if empty) Oral contrast used: without Oral Contrast (none if empty) CT DLP: 1286.5 mGycm, Automated exposure control for dose reduction was used. FINDINGS: LUNG BASES: No significant abnormality is appreciated. LIVER/GB: Liver is heterogeneously hypodense consistent with diffuse fatty infiltration. Contracted g allbladder is seen. No new biliary dilatation. PANCREAS: No significant abnormality is seen. SPLEEN: No significant abnormality is seen. ADRENALS: No significant abnormality is seen. KIDNEYS: No significant abnormality is seen. BOWEL: No significant abnormality is seen. PROSTATE/SEMINAL VESICLES: No gross abnormality seen. LYMPH NODES: No greater than 1cm abdominal or pelvic lymph nodes are appreciated. OSSEOUS STRUCTURES: [id number] disc space narrowing with vacuum disc phenomenon at the L5-S1 level is redemonstrated. OTHER: No significant additional abnormality is seen. IMPRESSION: No significant acute finding is seen to account for patient's clinical symptoms of right upper quadrant pain. [facility], , 12/21/2024 7:11 PM
[2024-12-21 19:44] VITALS: BP 146/93; PULSE 83
== END 2024-12-21 19:45 | disposition home or self-care (01) ==
LOC: EC 15:43
DX: R10.9 Unspecified abdominal pain (principal); Z87.891 Personal history of nicotine dependence
CPT/HCPCS: 36415; 93005; 80053; 82150; 83605; 83690; 85025; 81003; 74177; 99284; 96374; 96375; 96361 ×2; J2405; J1885; Q9967

== ENCOUNTER 2024-12-30 11:29 | Emergency (ER) | payer BC ==
--- NOTE | 2024-12-30 12:16 | ED ---
Abdominal Pain HPI - General Chief Complaint: Abdominal Pain Stated Complaint: ABD Pain Time Seen by Provider: 12/30/24 12:15 Source: patient, RN notes reviewed, old records reviewed Mode of arrival: ambulatory Limitations: no limitations - History of Present Illness Initial Comments: 44-year-old male with a past medical history significant of diabetes mellitus and GERD presenting to the ER for evaluation of right upper quadrant abdominal pain. Patient was seen here on 12 21 24 for similar complaint and was instructed to follow-up with general surgeon. Patient was discharged with Toradol and Zofran. Patient states he is scheduled for cholecystectomy with Dr. Rolon on 01-03-2025. He states last night he started to experience a severe cramping right upper quadrant abdominal pain. He states pain does mildly radiate to his back. He admits to nausea and dry heaving with no actual vomiting. Patient does admit to constipation but states this is chronic and he takes Linzess. He denies any fevers, chills, chest pain, shortness of breath, dizziness. He does report mild lightheadedness and contributes this to pain. Patient did take Toradol prior to arrival but is still complaining of a 10 out of 10 cramping upper abdominal discomfort. Patient also states stretching aids with discomfort. No urinary complaints. No other complaints at this time. - Related Data Home Medications Medication Instructions Recorded Confirmed Ketorolac [Toradol] 10 mg PO Q8HR PRN 12/30/24 12/30/24 Linaclotide [Linzess] 145 mcg PO DAILY 12/30/24 12/30/24 Loratadine [Claritin] 20 mg PO DAILY 12/30/24 12/30/24 Pantoprazole [Protonix] 40 mg PO DAILY 12/30/24 12/30/24 Simethicone [Gas-X] 125 mg PO QID PRN 12/30/24 12/30/24 metFORMIN HCL 1,000 mg PO BID 12/30/24 12/30/24 Previous Rx's Medication Instructions Recorded Ondansetron Odt [Zofran Odt] 4 mg PO Q8HR PRN #10 tab 12/21/24 HYDROcodone/APAP 5-325MG [[place] 5] 1 each PO Q6HR PRN #12 tab 12/30/24 Ondansetron Odt [Zofran Odt] 4 mg PO Q8HR PRN #10 tab 12/30/24 Allergies Allergy/AdvReac Type Severity Reaction Status Date / Time grass pollen-[place], Allergy Rash/Hives Verified 12/30/24 13:37 standard Review of Systems ROS Statement: Those systems with pertinent positive or pertinent negative responses have been documented in the HPI. ROS Other: All systems not noted in ROS Statement are negative. Past Medical History Past Medical History: Diabetes Mellitus, GERD/Reflux Additional Past Medical History / Comment(s): constipation History of Any Multi-Drug Resistant Organisms: None Reported Past Surgical History: No Surgical Hx Reported Past Anesthesia/Blood Transfusion Reactions: No Reported Reaction Past Psychological History: No Psychological Hx Reported Smoking Status: Former smoker Past Alcohol Use History: None Reported Past Drug Use History: None Reported - Past Family History Mother Family Medical History: No Reported History General Exam Limitations: no limitations General appearance: alert, in no apparent distress Respiratory exam: Present: normal lung sounds bilaterally. Absent: respiratory distress, wheezes, rales, rhonchi, stridor Cardiovascular Exam: Present: regular rate, normal rhythm, normal heart sounds. Absent: systolic murmur, diastolic murmur, rubs, gallop, clicks GI/Abdominal exam: Present: soft, tenderness (Right upper quadrant), normal bowel sounds Extremities exam: Present: normal inspection, full ROM, normal capillary refill. Absent: tenderness, pedal edema, joint swelling, calf tenderness Neurological exam: Present: alert, oriented X3, CN II-XII intact Skin exam: Present: warm, dry, intact, normal color. Absent: rash Course Vital Signs 12/30/24 12/30/24 11:50 17:25 Temperature 98.5 F 98.6 F Pulse Rate 90 79 Respiratory 17 18 Rate Blood Pressure 133/93 124/86 O2 Sat by Pulse 96 98 Oximetry - Reevaluation(s) Reevaluation #1: 12/30/24 17:[address] Rolon. He stated patient can be discharged with symptomatic control and to follow-up as scheduled on Thursday for surgery. Medical Decision Making - Medical Decision Making Was pt. sent in by a medical professional or institution (, PA, PROMOTION WRITER, urgent care, hospital, or penitentiary...) When possible be specific @ -No Did you speak to anyone other than the patient for history (EMS, parent, family, police, friend...)? What history was obtained from this source @ -No Did you review nursing and triage notes (agree or disagree)? Why? @ -I reviewed and agree with nursing and triage notes Were old charts reviewed (outside hosp., previous admission, EMS record, old EKG, old radiological studies, urgent care reports/EKG's, penitentiary records)? Report findings @ Yes, i reviewed ER visit and gallbladder us completed on 12/21/24. Patient discharged and instructed to follow-up with general surgeon. Discharged with zofran and toradol. Differential Diagnosis (chest pain, altered mental status, abdominal pain women, abdominal pain men, vaginal bleeding, weakness, fever, dyspnea, syncope, headache, dizziness, GI bleed, back pain, seizure, CVA, palpatations, mental health, musculoskeletal)? @ -Differential Abdominal Pain Men: Appendicitis, cholecystitis, diverticulosis, ischemic bowel, pancreatitis, hepatitis, UTI, gastroenteritis, AAA, incarcerated hernia, bowel obstruction, constipation, inflammatory bowel, hepatitis, peptic ulcer disease, splenic infarction, perforated viscus, testicular torsion, this is not meant to be an all-inclusive list EKG interpreted by me (3pts min.). @ -As above X-rays interpreted by me (1pt min.). @ -None done CT interpreted by me (1pt min.). @ -None done U/S interpreted by me (1pt. min.). @ -Gallbladder ultrasound showing no acute process. There is adherent gallstone/polyps in the gallbladder wall measuring up to 4 mm., Bile duct 0.4 cm What testing was considered but not performed or refused? (CT, X-rays, U/S, labs)? Why? @ -None What meds were considered but not given or refused? Why? @ -None Did you discuss the management of the patient with other professionals (professionals i.e. , PA, PROMOTION WRITER, lab, RT, psych nurse, transition social worker, special effects technician, teacher, food safety officer, case liner)? Give summary @ -Yes, case was discussed with Dr. Rolon. He advised on patient to be discharged with symptomatic control and to follow-up as scheduled on Thursday for surgery. Was smoking cessation discussed for >3mins.? @ -No Was critical care preformed (if so, how long)? @ -No Were there social determinants of health that impacted care today? How? (Homelessness, low income, unemployed, alcoholism, drug addiction, transportation, low edu. Level, literacy, decrease access to med. care, long-term, rehab)? @ -No Was there de-escalation of care discussed even if they declined (Discuss DNR or withdrawal of care, Hospice)? DNR status @ -No What co-morbidities impacted this encounter? (DM, HTN, Smoking, COPD, CAD, Cancer, CVA, ARF, Chemo, Hep., AIDS, mental health diagnosis, sleep apnea, morbid obesity)? @ -Diabetes mellitus/GERD Was patient admitted / discharged? Hospital course, mention meds given and route, prescriptions, significant lab abnormalities, going to OR and other pertinent info. @ -Discharge. 44-year-old male presented the ER for evaluation of right upper quadrant abdominal pain. Upon rooming, history and physical exam completed. Vitals within acceptable limits. Laboratory studies showed a leukocytosis of 10.8 with a left shift. Chronic transaminitis with a total bilirubin 0.6. (AST 115, ALT 147, alk phos 144). Urine analysis concerning of mild dehydration with 1+ protein for which patient received IV fluids. Symptomatic treatment in the emergency department. Gallbladder ultrasound completed showing adherent gallstones/polyps with a gallbladder wall measuring up to 4 mm. No evidence of acute process. Common bile duct 0.4 cm. As patient is following up with Dr. Rolon and is scheduled for cholecystectomy in 4 days, case was discussed with Dr. Rolon. He advised patient can be discharged with symptomatic control and to follow-up as scheduled for surgery. Patient will be discharged with [place] and Zofran. I advised continued use of Toradol for pain control as well. I also recommended a low-fat diet. Strict return parameters discussed. Patient discharged in stable condition with follow-up to Dr. Rolon. Patient verbally expressed understanding agreement with care plan. Case discussed with ED attending, Dr. Tomlinson. Undiagnosed new problem with uncertain prognosis? @ -No Drug Therapy requiring intensive monitoring for toxicity (Heparin, Nitro, Insulin, Cardizem)? @ -No Were any procedures done? @ -No Diagnosis/symptom? @ -Abdominal pain/gallbladder stones v. polyps Acute, or Chronic, or Acute on Chronic? @ -Acute Uncomplicated (without systemic symptoms) or Complicated (systemic symptoms)? @ -Uncomplicated Side effects of treatment? @ -No Exacerbation, Progression, or Severe Exacerbation? @ -No Poses a threat to life or bodily function? How? (Chest pain, [place], [place], pneumonia, PE, COPD, DKA, ARF, appy, cholecystitis, CVA, Diverticulitis, Homicidal, Suicidal, threat to staff... and all critical care pts) @ -Low at this - Lab Data Result diagrams: 12/30/24 13:36 12/30/24 13:36 Lab Results 12/30/24 12/30/24 12/30/24 Range/Units 13:36 13:36 13:36 WBC 10.89 H (4.50-10.00) 10*3/uL RBC 5.53 (4.40-5.60) 10*6/uL Hgb 16.3 (13.0-17.0) g/dL Hct 47.7 (39.6-50.0) % MCV 86.3 (80.0-97.0) fL MCH 29.5 (27.0-32.0) pg MCHC 34.2 (32.0-37.0) g/dL Plt Count 242 (140-440) 10*3/uL MPV 11.2 (9.5-12.2) fL Immature Gran % (Auto) 0.5 % Neutrophils % 72.5 % Lymphocytes % 18.3 % Monocytes % 6.2 % Eosinophils % 1.9 % Basophils % 0.6 % Immature Gran # 0.05 H (0.00-0.04) 10*3/uL Neutrophils # 7.91 H (1.80-7.70) 10*3/uL Lymphocytes # 1.99 (0.90-5.00) 10*3/uL Monocytes # 0.67 (0.20-1.00) 10*3/uL Eosinophils # 0.21 (0.04-0.35) 10*3/uL Basophils # 0.06 (0.00-0.10) 10*3/uL Sodium 134 L (137-145) mmol/L Potassium 4.7 (3.5-5.1) mmol/L Chloride 96 L (98-107) mmol/L Carbon Dioxide 23 (22-30) mmol/L Anion Gap 15 mmol/L BUN 20 (9-20) mg/dL Creatinine 0.89 (0.66-1.25) mg/dL Est GFR (CKD-EPI)AfAm >90 (>60 ml/min/1.73 sqM) Est GFR (CKD-EPI)NonAf >90 (>60 ml/min/1.73 sqM) Glucose 122 H (74-99) mg/dL Plasma Lactic Acid Alan 1.9 (0.7-2.0) mmol/L Calcium 10.2 (8.4-10.2) mg/dL Total Bilirubin 0.6 (0.2-1.3) mg/dL AST 115 H (17-59) U/L ALT 147 H (4-49) U/L Alkaline Phosphatase 144 H (38-126) U/L Total Protein 9.0 H (6.3-8.2) g/dL Albumin 5.3 H (3.5-5.0) g/dL Amylase 63 (30-110) U/L Lipase 120 (23-300) U/L Urine Color Urine Appearance (Clear) Urine pH (5.0-8.0) Ur Specific [place] (1.001-1.035) Urine Protein (Negative) Urine Glucose (UA) (Negative) Urine Ketones (Negative) Urine Blood (Negative) Urine Nitrite (Negative) Urine Bilirubin (Negative) Urine Urobilinogen (<2.0) mg/dL Ur Leukocyte Esterase (Negative) Urine RBC (0-5) /hpf Urine WBC (0-5) /hpf Ur Squamous Epith Cells (0-4) /hpf Hyaline Casts (0-2) /lpf Urine Mucus (None) /hpf 12/30/24 Range/Units 14:30 WBC (4.50-10.00) 10*3/uL RBC (4.40-5.60) 10*6/uL Hgb (13.0-17.0) g/dL Hct (39.6-50.0) % MCV (80.0-97.0) fL MCH (27.0-32.0) pg MCHC (32.0-37.0) g/dL Plt Count (140-440) 10*3/uL MPV (9.5-12.2) fL Immature Gran % (Auto) % Neutrophils % % Lymphocytes % % Monocytes % % Eosinophils % % Basophils % % Immature Gran # (0.00-0.04) 10*3/uL Neutrophils # (1.80-7.70) 10*3/uL Lymphocytes # (0.90-5.00) 10*3/uL Monocytes # (0.20-1.00) 10*3/uL Eosinophils # (0.04-0.35) 10*3/uL Basophils # (0.00-0.10) 10*3/uL Sodium (137-145) mmol/L Potassium (3.5-5.1) mmol/L Chloride (98-107) mmol/L Carbon Dioxide (22-30) mmol/L Anion Gap mmol/L BUN (9-20) mg/dL Creatinine (0.66-1.25) mg/dL Est GFR (CKD-EPI)AfAm (>60 ml/min/1.73 sqM) Est GFR (CKD-EPI)NonAf (>60 ml/min/1.73 sqM) Glucose (74-99) mg/dL Plasma Lactic Acid Alan (0.7-2.0) mmol/L Calcium (8.4-10.2) mg/dL Total Bilirubin (0.2-1.3) mg/dL AST (17-59) U/L ALT (4-49) U/L Alkaline Phosphatase (38-126) U/L Total Protein (6.3-8.2) g/dL Albumin (3.5-5.0) g/dL Amylase (30-110) U/L Lipase (23-300) U/L Urine Color Yellow Urine Appearance Cloudy (Clear) Urine pH 5.5 (5.0-8.0) Ur Specific [place] 1.029 (1.001-1.035) Urine Protein 1+ H (Negative) Urine Glucose (UA) Negative (Negative) Urine Ketones Negative (Negative) Urine Blood Negative (Negative) Urine Nitrite Negative (Negative) Urine Bilirubin Negative (Negative) Urine Urobilinogen <2.0 (<2.0) mg/dL Ur Leukocyte Esterase Negative (Negative) Urine RBC 1 (0-5) /hpf Urine WBC 3 (0-5) /hpf Ur Squamous Epith Cells <1 (0-4) /hpf Hyaline Casts 8 H (0-2) /lpf Urine Mucus Many H (None) /hpf - EKG Data -: EKG Interpreted by [facility] EKG Comments: EKG taken at 13: 00 showing a sinus rhythm. No ST segment elevations or depressions. T wave inversions in lead III. Ventricular rate 80, RI interval 159, QRS ration 86, QT/QTc 342/377. - Radiology Data Radiology results: report reviewed, image reviewed Disposition Clinical Impression: Abdominal pain Disposition: HOME SELF-CARE Condition: Stable Instructions (If sedation given, give patient instructions): Abdominal Pain (ED) Additional Instructions: Follow-up with Dr. Rolon as scheduled on Thursday for cholecystectomy. Take Zofran and [place] as prescribed along with Toradol for pain control. Return to the ER for any new or worsening concerns. Prescriptions: HYDROcodone/APAP 5-325MG [[place] 5] 1 each PO Q6HR PRN #12 tab PRN Reason: Pain Ondansetron Odt [Zofran Odt] 4 mg PO Q8HR PRN #10 tab PRN Reason: Nausea Is patient prescribed a controlled substance at d/c from ED?: Yes When asked, does pt state using other controlled substances?: No If prescribed controlled substance>3 days was MAPS reviewed?: Prescribed <3 Days If opioid is for acute pain is fill amount 7 days or less?: Yes If Rx opioid, was Start Talking consent form obtained?: Yes Referrals: Omer Forman MD [Primary Care Provider] - 1-2 days Sebastian Rolon DO [Doctor of Osteopathic Medicine] - 1-2 days Time of Disposition: 17:15
[2024-12-30] MEDS: HYDROmorphone 0.5 MG/0.5 ML SYRINGE IVP STA (13:37)
[2024-12-30] MEDS: ONDANSETRON 4 MG/2 ML VIAL IVP STA (13:37)
[2024-12-30] MEDS: SODIUM CHLORIDE 0.9% 1,000 ML IV ONE (13:41)
[2024-12-30 13:45] LABS: Basophils # (A) 0.06 10*3/uL (0.00-0.10); Basophils % (A) 0.6 %; Eosinophils # (A) 0.21 10*3/uL (0.04-0.35); Eosinophils % (A) 1.9 %; HCT 47.7 % (39.6-50.0); HGB 16.3 g/dL (13.0-17.0); Lymphocytes # (A) 1.99 10*3/uL (0.90-5.00); Lymphocytes % (A) 18.3 %; MCH 29.5 pg (27.0-32.0); MCHC 34.2 g/dL (32.0-37.0); MCV 86.3 fL (80.0-97.0); Mean Platelet Volume 11.2 fL (9.5-12.2); Monocytes # (A) 0.67 10*3/uL (0.20-1.00); Monocytes % (A) 6.2 %; Neutrophils # (A) 7.91 10*3/uL (1.80-7.70); Neutrophils % (A) 72.5 %; Platelet Count 242 10*3/uL (140-440); RBC 5.53 10*6/uL (4.40-5.60); WBC 10.89 10*3/uL (4.50-10.00)
[2024-12-30 14:02] LABS: ALT 147 U/L (4-49); AST 115 U/L (17-59); African American GFR (CKD) >90 (>60 ml/min/1.73 sqM); Albumin 5.3 g/dL (3.5-5.0); Alkaline Phosphatase 144 U/L (38-126); Amylase 63 U/L (30-110); Anion Gap 15 mmol/L; Blood Urea Nitrogen 20 mg/dL (9-20); Calcium 10.2 mg/dL (8.4-10.2); Carbon Dioxide 23 mmol/L (22-30); Chloride 96 mmol/L (98-107); Glucose 122 mg/dL (74-99); Lipase 120 U/L (23-300); Non-African American GFR(CKD) >90 (>60 ml/min/1.73 sqM); Potassium 4.7 mmol/L (3.5-5.1); Sodium 134 mmol/L (137-145); Total Bilirubin 0.6 mg/dL (0.2-1.3)
[2024-12-30 15:05] LABS: Appearance,Urine Cloudy (Clear); Bilirubin,Urine Negative (Negative); Blood,Urine Negative (Negative); Color,Urine Yellow; Glucose,Urine (UA) Negative (Negative); Hyaline Casts,Urine 8 /lpf (0-2); Ketones,Urine Negative (Negative); Leukocyte Esterase,Urine Negative (Negative); Mucus,Urine Many /hpf; Nitrite,Urine Negative (Negative); PH, Urine 5.5 (5.0-8.0); Protein,Urine 1+ (Negative); RBC,Urine 1 /hpf (0-5); Specific Gravity,Urine 1.029 (1.001-1.035); Squamous Epithelial Cell,Urine <1 /hpf (0-4); Urobilinogen,Urine <2.0 mg/dL (<2.0); WBC,Urine 3 /hpf (0-5)
--- NOTE | 2024-12-30 15:17 | US ---
EXAMINATION TYPE: US gallbladder DATE OF EXAM: 12/30/2024 COMPARISON: US 2024 CLINICAL INDICATION: Male, 44 years old with history of RUQ abd pain; TECHNIQUE: Grayscale and color Doppler imaging of the right upper quadrant was performed. FINDINGS: EXAM MEASUREMENTS: Liver Length: 18.1 cm Gallbladder Wall: 0.2 cm CBD: 0.4 cm Right Kidney: 11.5 x 5.1 x 5.0 cm Pancreas: obscured by overlying midline bowel gas Liver: enlarged, increased attenuation, decreased visualization of vessels suggestive of fatty infil trate Gallbladder: multiple hypoechoic foci along wall measuring up to 4 mm. Evidence for sonographic Andrade's sign: yes CBD: visualized portions wnl, limited by overlying bowel gas Right Kidney: wnl IMPRESSION: No evidence for acute process. Hepatic steatosis. Adherent gallstones versus polyps present along the gallbladder wall measuring up to 4 mm. [facility], , 12/30/2024 3:14 PM
[2024-12-30] MEDS: KETOROLAC 15 MG/ML 1 ML VIAL IVP STA (16:37)
[2024-12-30] MEDS: HYDROmorphone 1 MG/ML 1 ML SYRINGE IVP STA (16:38)
[2024-12-30 17:29] VITALS: BP 124/86; PULSE 79; RESP 18; TEMP 98.6
== END 2024-12-30 17:29 | disposition home or self-care (01) ==
LOC: EC 11:29
DX: R10.11 Right upper quadrant pain (principal); Z87.891 Personal history of nicotine dependence; Z88.8 Allergy status to other drugs, medicaments and biological substances
CPT/HCPCS: 36415; 93005; 80053; 82150; 83605; 83690; 85025; 81001; 76705; 99284; 96374; 96375 ×2; 96376; 96361 ×2; J2405; J1171 ×2; J1885

== ENCOUNTER 2025-01-03 12:51 | Day surgery (SDC) | payer BC ==
[2024-12-30 12:22] VITALS: BMI 33.5
[~2025-01-03 12:51] MED LIST: HYDROmorphone 0.5 MG/0.5 ML SYRINGE IVP PRN; INDOCYANINE GREEN 25 MG VIAL IV NR; MIDAZOLAM 2 MG/2 ML VIAL IV PRN; fentaNYL (PF) 50 MCG/ML 2 ML AMP IVP PRN
[2025-01-03] MEDS: LIDOCAINE 1% (10MG/ML) FOR IV START INTRADERMA PRN (13:32)
[2025-01-03] MEDS: IV FLUID CONTINUATION 1,000 ML IV ONE ×3 (13:33→16:51)
[2025-01-03] MEDS: LACTATED RINGERS 1,000 ML IV SCH (13:33)
[2025-01-03] MEDS: ONDANSETRON 4 MG/2 ML VIAL IVP ONE (13:35)
[2025-01-03] MEDS: HEPARIN SODIUM,PORCINE 5,000 UNIT/ML 1 ML VIAL SQ PRN (13:36)
[2025-01-03] MEDS: DEXAMETHASONE SOD PHOSPHATE 4 MG/ML 1 ML VIAL IV ONE (13:36)
[2025-01-03 13:40] LABS: Glucose,Whole Blood 111 mg/dL (70-110)
[2025-01-03] MEDS: INDOCYANINE GREEN 25 MG VIAL IV NR (13:41)
[2025-01-03] MEDS ORDERED: SUCCINYLCHOLINE CHLORIDE 200 MG/10 ML VIAL IV ONE (14:12)
[2025-01-03] MEDS ORDERED: PROPOFOL 10 MG/ML 20 ML VIAL IV ONE (14:12)
[2025-01-03] MEDS ORDERED: LIDOCAINE 1% INJ 10MG/ML (20 ML MDV) ONE (14:12)
[2025-01-03] MEDS ORDERED: ROCURONIUM 10 MG/ML (5 ML VIAL) IV ONE (14:12)
[2025-01-03] MEDS ORDERED: NEOSTIGMINE 1 MG/ML 10 ML VIAL ONE (14:12)
[2025-01-03] MEDS ORDERED: fentaNYL (PF) 50 MCG/ML 2 ML AMP ONE (14:12)
[2025-01-03] MEDS ORDERED: MIDAZOLAM 2 MG/2 ML VIAL ONE (14:12)
[2025-01-03] MEDS ORDERED: GLYCOPYRROLATE 0.2 MG/ML 2 ML VIAL ONE (14:12)
[2025-01-03] MEDS ORDERED: HYDROmorphone (PF) 1 MG/ML ONE (14:12)
[2025-01-03] MEDS: ceFAZolin 2 GM in DEXTROSE 5% IN WATER 50 ML IVPB PRN (14:17)
[2025-01-03] MEDS: BUPIVACAINE (PF) 0.25% 30 ML VIAL SQ ONE (14:47)
--- NOTE | 2025-01-03 15:21 | P.OP ---
Date of Procedure: 01/03/25 Preoperative Diagnosis: Chronic calculus cholecystitis Postoperative Diagnosis: Chronic calculus cholecystitis Procedure(s) Performed: Robotic cholecystectomy Anesthesia: ARMEN Surgeon: Sebastian Rolon Pathology: other (Gallbladder and contents) Condition: stable Disposition: same day Indications for Procedure: 44-year-old male presented to the surgery clinic with complaint of right upper quadrant pain and found to have symptomatic cholelithiasis. Likely has chronic calculus cholecystitis. Plan is for robotic cholecystectomy. Risks, benefits and alternatives were provided to the patient. All questions answered. Operative Findings: Contracted and thickened gallbladder Description of Procedure: Patient was brought to the operating suite and placed in supine position on the operating table. Sedation was provided by anesthesia and the patient underwent endotracheal intubation. The patient was then prepped and draped in regular sterile fashion. An infraumbilical incision was made and dissection was carried to the fascia. The fascia was incised and an 8 mm trocar was placed. Pneumoperitoneum was achieved. The patient was then placed in appropriate position. 2 additional 8 mm trocars were placed in the right upper quadrant and 1 in the left upper quadrant. Robot was then docked. The gallbladder was then grasped and retracted superiorly and laterally. The gallbladder appeared somewhat contracted and thickened. Dissection was carried along the infundibulum towards the cystic duct and the cystic duct was skeletonized. The cystic artery was similarly skeletonized and critical view was obtained. ICG was used to confirm anatomy. 2 clips were placed proximally on the cystic duct and 1 was placed distally and the cystic duct was ligated. Similarly, 2 clips were placed proximally on the cystic artery and 1 was placed distally and the cystic artery was ligated. Cautery was then used to dissect the gallbladder off of the gallbladder fossa. The gallbladder was then placed in an Endo Catch bag and removed from the abdomen from the infraumbilical incision site. Hemostasis was noted to be maintained. No bile leakage was noted. The infraumbilical fascial incision was closed under direct visualization using an 0 Vicryl suture and Tyshawn-Karen device. Pneumoperitoneum was released. All ports removed from the abdomen. All port sites were closed with 4-0 Vicryl subcuticular suture. Sterile dressing was applied. The patient was taken to postanesthesia care unit in stable condition. Sponge and instrument count correct x 2.
[2025-01-03 15:39] VITALS: TEMP 97
[2025-01-03] MEDS: HYDROcodone/APAP 5-325MG 1 EACH TAB PO ONE (16:46)
[2025-01-03 17:08] VITALS: PULSE 79
[2025-01-03 17:16] VITALS: BP 148/94; RESP 16
== END 2025-01-03 17:43 | disposition home or self-care (01) ==
LOC: OR 12:51
PROVIDERS: ATTEND Surgery
DX: K80.10 Calculus of gallbladder with chronic cholecystitis without obstruction (principal)
CPT/HCPCS: 47562; S2900; 88304

== ENCOUNTER → 2025-03-21 | Outpatient (CLI) | payer BC ==
[2025-03-21 19:22] LABS: Ferritin 452.0 ng/mL (22.0-322.0); Iron 137.0 UG/DL (65-175); Total Iron Binding Capacity 413.0 UG/DL (228-460)
[2025-03-21 19:27] LABS: Hepatitis A Antibody IgM Nonreactive (Nonreactive); Hepatitis B Surface Antigen Nonreactive (Nonreactive); Hepatitis C IgG Antibody Nonreactive (Nonreactive)
[2025-03-22 12:22] LABS: Liver/Kidney Microsome Antibod 1.4 UNITS (<=20)
== END | disposition home or self-care (01) ==
LOC: LABWHC1 14:11
PROVIDERS: ATTEND Student in an Organized Health Care Education/Training Program
DX: K58.0 Irritable bowel syndrome with diarrhea (principal); K21.9 Gastro-esophageal reflux disease without esophagitis; K75.81 Nonalcoholic steatohepatitis (NASH); R14.0 Abdominal distension (gaseous)
CPT/HCPCS: 36415; 82103; 82390; 82525; 82728; 83516; 83540; 83550; 86038; 86039; 86376; 86709; 86803; 87340

== ENCOUNTER → 2025-04-11 | Outpatient (CLI) | payer BC ==
--- NOTE | 2025-04-11 09:26 | US ---
EXAMINATION TYPE: US abdomen complete DATE OF EXAM: 04/11/2025 COMPARISON: US, CT 2024, US 2019 CLINICAL INDICATION: Male, 45 years old with history of K76.0 GASTRO-ESOPHAGEAL REFLUX DISEASE WITHOU T ESO; History cholecystectomy 1 month ago. Per order: fatty liver and bloating. TECHNIQUE: Grayscale and color Doppler imaging of the abdomen was performed. FINDINGS: EXAM MEASUREMENTS: Liver Length: 17.0 cm Gallbladder Wall: Surgically absent CBD: Obscured Spleen: 12.4 cm Right Kidney: 12.5 x 4.6 x 5.2 cm Left Kidney: 10.9 x 6.3 x 5.9 cm STNA NOTES: Exam limited due to great amount of bowel gas. Pancreas: Not well visualized Liver: Measures mildly enlarged, appears very coarse and heterogeneous with increased attenuation. Gallbladder: Anechoic area seen in fossa measuring 2.6 x 0.9 x 0.8 cm. This could be fluid. Consid er follow-up hepatobiliary nuclear medicine scan to evaluate for leak. The gallbladder is surgically absent Evidence for sonographic Andrade's sign: No CBD: Obscured by bowel gas Spleen: wnl Right Kidney: wnl, No hydronephrosis, calculi or masses seen Left Kidney: wnl, No hydronephrosis, calculi or masses seen Upper IVC: Limited visibility Abd Aorta: Obscured IMPRESSION: 1. There is an anechoic collection which may be fluid in the gallbladder bed fossa. Bile leak is not excluded. Ascites could be considered. If additional evaluation would be of benefit, nuclear medicine hepatobiliary study could evaluate for bile leak. 2. Hepatomegaly with moderate fatty infiltration of the liver. [facility], Workstation: [facility], 04/11/2025 9:23 AM
== END | disposition home or self-care (01) ==
LOC: RADUSWWP 08:17
PROVIDERS: ATTEND Student in an Organized Health Care Education/Training Program
DX: K21.9 Gastro-esophageal reflux disease without esophagitis (principal); K58.1 Irritable bowel syndrome with constipation; K75.81 Nonalcoholic steatohepatitis (NASH); R16.0 Hepatomegaly, not elsewhere classified
CPT/HCPCS: 76700